=== PATIENT | female | born 1990 | race Caucasian/White ===

== ENCOUNTER 2017-03-05 23:59 | Emergency (ER) | payer OTHER ==
[2017-03-05 23:59] VITALS: BMI 27.6
[2017-03-06 00:13] VITALS: BP 110/75; PULSE 80; RESP 18; TEMP 97.5; O2SAT 100
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
== END 2017-03-06 00:39 | disposition home or self-care (01) ==
LOC: C.ER 23:59
DX: S16.1XXA Strain of muscle, fascia and tendon at neck level, initial encounter (principal); V89.2XXA Person injured in unspecified motor-vehicle accident, traffic, initial encounter

== ENCOUNTER 2018-07-05 21:04 | Emergency (ER) | payer OTHER ==
[2018-07-05 21:05] VITALS: BMI 27.6
[2018-07-05 21:24] VITALS: RESP 20; TEMP 98.2
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
[2018-07-05 22:18] LABS: HCG,QUALITATIVE URINE POSITIVE (NEGATIVE)
[2018-07-06 01:13] LABS: URINE BILIRUBIN NEGATIVE (NEGATIVE); URINE BLOOD 2+ (NEGATIVE); URINE CLARITY Clear (Clear); URINE COLOR STRAW (YELLOW); URINE GLUCOSE (UA) Normal (Normal); URINE PROTEIN NEGATIVE (NEGATIVE)
[2018-07-06 01:14] LABS: SQUAMOUS EPITHIAL 1 /hpf (0-5); URINE LEUKOCYTE ESTERASE NEGATIVE Leu/uL (Negative); URINE UROBILINOGEN Normal mg/dL (0.2-1.0)
[2018-07-06 01:33] VITALS: BP 129/74; PULSE 74; O2SAT 98
--- NOTE | 2018-07-06 10:15 | US ---
Date of service: 07/05/2018 HISTORY: pelvic pain early preg r/o ectopic COMPARISON: None available. TECHNIQUE: Real-time transabdominal pelvic ultrasound was performed. In addition a transvaginal pelvic ultrasound was necessary to better depict pelvic anatomy. FINDINGS: UTERUS: Measures 9.0 x 5.3 x 5.1 cm. 1.2 x 1.1 x 1.5 cm anterior and 1.0 x 1.0 x 1.0 cm mid uterine fibroids. ENDOMETRIUM: Measures 9 mm. CERVIX: Cervix length measures approximately 3.3 cm. Nabothian cyst. RIGHT OVARY: Measures 3.6 x 2.2 x 3.2 cm. Blood flow is demonstrated. 1.5 x 1.6 x 1.9 cm corpus luteal cyst. LEFT OVARY: Measures 2.4 x 1.4 x 1.8 cm. Blood flow is demonstrated. FREE FLUID: No significant free fluid noted. OTHER FINDINGS: None. IMPRESSION: No evidence of intrauterine gestational sac. If indeed the patient is based on serum beta HCG values, the sonographic findings represent either: Very early IUP; embryonic demise; ectopic gestation. Follow-up with serial quantitative serum beta HCG measurements and post OBGYN follow-up as clinically indicated, since ectopic gestation cannot be excluded based only on sonographic findings. Two probable uterine fibroids as above. 1.5 x 1.6 x 1.9 cm right ovarian corpus luteum. Preliminary impression was provided by [employer].
== END 2018-07-06 01:33 | disposition home or self-care (01) ==
LOC: C.ER 21:04
DX: O20.0 Threatened abortion (principal); Z3A.00 Weeks of gestation of pregnancy not specified